=== PATIENT | female | born 2005 | race Two or more races ===

== ENCOUNTER 2025-01-27 12:01 | Emergency (ER) | payer BC ==
[~2025-01-27] VITALS: Ht 154.9 cm; Wt 71.7 kg
[2025-01-27] MEDS ORDERED: ONDANSETRON ODT4 MG (12:31)
[2025-01-27] MEDS ORDERED: LAMICTAL200 M1 (12:31)
[2025-01-27] MEDS ORDERED: PROZAC20 MG (12:31)
[2025-01-27] MEDS ORDERED: RITALIN LA30 MG PO (12:31)
[2025-01-27] MEDS ORDERED: PROZAC10 MG (12:32)
== END 2025-01-27 13:30 | disposition home or self-care (01) ==
LOC: ER 12:01 → EMR PED 12:01
DX: J02.8 Acute pharyngitis due to other specified organisms (principal); G47.419 Narcolepsy without cataplexy